=== PATIENT | female | born 1965 | race Asian ===

== ENCOUNTER → 2018-05-06 | Outpatient (CLI) | payer OTHER, SELFPAY ==
[~2018-05-06] MED LIST: GASTROGRAFIN SOLUTION 30ML (Q9963) As Ordered; ISOVUE-370 76% 100ML VIAL (Q9967) As Ordered
== END ==
LOC: M RAD 15:12
DX: R10.33 Periumbilical pain (principal); Z97.5 Presence of (intrauterine) contraceptive device; N83.201 Unspecified ovarian cyst, right side
CPT/HCPCS: Q9963